=== PATIENT | female | born 1940 | race Two or more races ===

== ENCOUNTER 2020-08-24 11:12 | Outpatient (CLI) | payer OTHER | END 2020-08-24 11:15 | disposition home or self-care (01) | LOC: SONOGRAMA 11:12 | PROVIDERS: ATTEND Pathology Anatomic Pathology & Clinical Pathology | DX: D34 Benign neoplasm of thyroid gland (principal); E06.3 Autoimmune thyroiditis; E04.2 Nontoxic multinodular goiter ==